=== PATIENT | female | born 1980 | race Hispanic/Latino ===

== ENCOUNTER 2017-08-19 09:00 | Inpatient (IN) | payer OTHER ==
[2017-08-09 12:03] VITALS: BMI 25.8
[2017-11-07] MEDS ORDERED: Propofol 10 mg/ml Inj (20 ML) ONE ×2 (07:40→08:36)
[2017-11-07] MEDS ORDERED: Midazolam 2 MG/2 ML VIAL ONE (07:40)
[2017-11-07] MEDS ORDERED: Rocuronium 10 mg/ml (5 ml) ONE (07:43)
[2017-11-07] MEDS ORDERED: ceFAZolin 1 gm in NS 2 GM/200 ML BAG IVPB ONE (08:06)
[2017-11-07] MEDS ORDERED: Bacitracin Ointment 30 GM TUBE ONE (08:06)
[2017-11-07] MEDS ORDERED: Vasopressin 20 Units/ml Inj ONE (08:07)
[2017-11-07] MEDS ORDERED: Neostigmine Methylsulfate 3mg/3ml Syringe IV ONE (09:48)
[2017-11-07] MEDS ORDERED: Morphine Monoject Barrel PCA 1mg/ml IV PRN ×2 (10:39→13:07)
[2017-11-07] MEDS ORDERED: Lactated Ringer's 1,000 ML IV SCH (10:45)
[2017-11-07 11:30] LABS: HEMOGLOBIN 12.4 g/dL (11.0-16.0); MEAN CELL VOLUME 95.2 fL (81.0-99.0); MEAN CORPUSCULAR HEMOGLOBIN 31.8 pg (27.0-31.0); MEAN CORPUSCULAR HGB CONC 33.5 g/dL (33.0-37.0); MEAN PLATELET VOLUME 8.8 fL (7.2-11.7); RBC 3.89 Mil/uL (3.80-5.20); RED CELL DISTRIBUTION WIDTH 13.2 % (11.5-14.5)
[2017-11-07 11:40] LABS: WHITE BLOOD COUNT 10.2 K/uL (4.8-10.8)
[2017-11-07 11:47] LABS: ALB/GLOB RATIO 1.1 (1.0-2.1); ALBUMIN 3.6 g/dL (3.5-5.0); ALT/SGPT 18 U/L (9-52); AST/SGOT 23 U/L (14-36); BLOOD UREA NITROGEN 12 mg/dL (7-17); CALCIUM 8.3 mg/dl (8.6-10.4); GFR AFRICAN-AMERICAN > 60; GFR NON-AFRICAN AMERICAN > 60
[2017-11-07] MEDS: HYDROmorphone 0.5 mg/0.5 ml ISec IVP PRN ×2 (11:55→12:54)
--- NOTE | 2017-11-07 12:20 | PCM.SURG1 ---
Surgeon's Initial Post Op Note - Surgeon's Notes Surgeon: Danita Desai MD [place] Selector: Froilan Garcia MD Type of Anesthesia: General Endo Pre-Operative Diagnosis: Abnormal uteirne bleeding, enodmetiral polyp, sympomatic fibroid uteurs, pelivc pain Operative Findings: 10 week size uteurs, enarlged 12cm+ subserosal enlarged myoma near fundus normal tubes and ovaires bilatearlly, cervical polyp uteurs souned to 10cmn with multped polypoid structures removed wqith myosure device. bilater ostia vislulzied. Dr Froilan Garcia was surgicla assistnat and present for entire case and essential in gaining entry, retractin, epxousre, removing myoma, obtainign hemostasis, closign defect and all laters. Post-Operative Diagnosis: same as above Operation Performed: Abdominal myomectomy, operative hystersocpy, endometiral and cervical plypecotmy Specimen/Specimens Removed: leiomyoms, cervical polyp, endometira lply, endocervical cerrettings, endometrial currettings Estimated Blood Loss: EBL {In ML}: 300 Blood Products Given: N/A Drains Used: No Drains Post-Op Condition: Good Date of Surgery/Procedure: 11/07/17 Time of Surgery/Procedure: 08:30
[2017-11-07] MEDS ORDERED: Lactated Ringer's 1,000 ML IV ONE (13:00)
[2017-11-07] MEDS ORDERED: DiphenhydrAMINE 50 mg/ml Inj IVP PRN (13:07)
[2017-11-07] MEDS ORDERED: Naloxone 0.4 mg/ml Inj (Adult) IVP PRN (13:07)
--- NOTE | 2017-11-08 06:50 | CP.PCM.PN ---
Subjective - Date & Time of Evaluation Date of Evaluation: 11/08/17 Time of Evaluation: 06:30 - Subjective Subjective: pt seen and examiend adn reprots pain is better controlled with iv medicatinpt not yet ambauting, tolerating clears, densi any fever chills, naue, vomitng, heavyvagiang bleedng, not passign flatus. Objective - Vital Signs/Intake and Output Vital Signs (last 24 hours): Temp Pulse Resp BP Pulse Ox 97.6 F 62 20 106/64 98 11/08/17 00:00 11/08/17 00:00 11/08/17 00:00 11/08/17 00:00 11/08/17 00:00 Intake and Output: 11/07/17 11/08/17 18:59 06:59 Intake Total 2630 Output Total 900 Balance 1730 - Medications Medications: Current Medications Diphenhydramine HCl (Benadryl) 25 mg IVP Q6 PRN PRN Reason: Itching / Pruritus Indomethacin (Indocin) 25 mg PO TID [facility] Last Admin: 11/07/17 22:09 Dose: 25 mg Ketorolac Tromethamine (Toradol) 30 mg IVP Q6 [facility] Last Admin: 11/08/17 06:19 Dose: 30 mg Naloxone HCl (Narcan) 0.1 mg IVP Q2M PRN PRN Reason: Excess sedation Ondansetron HCl (Zofran Inj) 4 mg IVP Q8H PRN PRN Reason: Nausea/Vomiting Oxycodone/Acetaminophen (Percocet 5/325 Mg Tab) 1 tab PO Q4 PRN PRN Reason: Pain, moderate (4-7) Stop: 11/10/17 10:45 Oxycodone/Acetaminophen (Percocet 5/325 Mg Tab) 2 tab PO Q4H PRN PRN Reason: Pain, severe (8-10) Stop: 11/10/17 10:45 - Labs Labs: 11/07/17 11:21 11/07/17 11:21 - Constitutional Appears: Well, Non-toxic - Head Exam Head Exam: ATRAUMATIC, NORMAL INSPECTION - Eye Exam Eye Exam: EOMI Pupil Exam: NORMAL ACCOMODATION - ENT Exam ENT Exam: Normal Exam - Neck Exam Neck Exam: Normal Inspection - Respiratory Exam Respiratory Exam: Clear to Ausculation Bilateral, NORMAL BREATHING PATTERN - Cardiovascular Exam Cardiovascular Exam: +S1, +S2 - GI/Abdominal Exam GI & Abdominal Exam: Soft, Tenderness, Normal Bowel Sounds Additional comments: TTPover incsion, no guaridn, no reboudm tendner, no giidty VE: no vaginal bleeding - Extremities Exam Extremities Exam: Normal Inspection Additional comments: negative stacey's sign - Neurological Exam Neurological Exam: Alert, Awake, Oriented x3 Assessment and Plan (1) S/P myomectomy Assessment & Plan: 1. Pain managnet: d/c denial management representative --> s/p IV Toradol--> [po percocet/motrin 2. Advance diet as tolerated 3. d/c cortez 4. encurage ambulatin out of bed 5. Incentive spirometer 6, Abdominal binder 7. AM labs 8. Cont ruotine post op manamgnet Status: Acute
[2017-11-08 08:04] LABS: BASO % 0.3 % (0.0-2.0); EOS # 0.1 K/uL (0.0-0.7); EOS % 0.5 % (0.0-4.0); HEMOGLOBIN 11.2 g/dL (11.0-16.0); LYMPH # 2.2 K/uL (1.0-4.3); LYMPH % 19.6 % (20.0-40.0); MEAN CELL VOLUME 93.5 fL (81.0-99.0); MEAN CORPUSCULAR HEMOGLOBIN 31.3 pg (27.0-31.0); MEAN CORPUSCULAR HGB CONC 33.4 g/dL (33.0-37.0); MEAN PLATELET VOLUME 9.2 fL (7.2-11.7); MONO # 0.9 K/uL (0.0-0.8); MONO % 8.6 % (0.0-10.0); NEUT # 7.8 K/uL (1.8-7.0); RBC 3.58 Mil/uL (3.80-5.20); RED CELL DISTRIBUTION WIDTH 12.7 % (11.5-14.5)
[2017-11-08 08:34] LABS: ALB/GLOB RATIO 1.1 (1.0-2.1); ALBUMIN 3.2 g/dL (3.5-5.0); ALT/SGPT 15 U/L (9-52); AST/SGOT 38 U/L (14-36); BLOOD UREA NITROGEN 8 mg/dL (7-17); CALCIUM 8.2 mg/dl (8.6-10.4); GFR AFRICAN-AMERICAN > 60; GFR NON-AFRICAN AMERICAN > 60
[2017-11-08] MEDS: Oxycodone/Acetaminophen 5/325 mg Tab PO PRN ×3 (09:04→20:05)
--- NOTE | 2017-11-08 11:01 | OP ---
PROCEDURE DATE: 11/07/2017 SURGEON: Danita Desai MD ARCHITECT MARINE: Froilan Garcia MD TYPE OF ANESTHESIA: General endotracheal. PREOPERATIVE DIAGNOSES: Abnormal uterine bleeding, endometrial polyps, symptomatic fibroid uterus, pelvic pain. POSTOPERATIVE DIAGNOSES: Abnormal uterine bleeding, endometrial polyps, symptomatic fibroid uterus, pelvic pain. OPERATIVE FINDINGS: A 10-week size uterus, enlarged 12 cm plus subserosal enlarged myoma on fundus, gross proximity to the left fallopian tube, normal ovaries bilaterally. Cervical polyp noted. Uterus sounded 10 cm with multiple polypoid structures removed with Myosure device. Bilateral ostia visualized. Dr. Froilan Garcia was instructor adjunct surgical technician, presents for the entire case and essential in gaining entry, retraction, exposure, holding the bladder blade, removing the myoma, obtaining hemostasis, and closing the defect, and obtaining hemostasis. PROCEDURES PERFORMED: Abdominal myomectomy, operative hysteroscopy, endometrial and cervical polypectomy. SPECIMENS REMOVED: Leiomyoma, endometrial polyp, cervical polyp, endocervical curetting, endometrial curetting. ESTIMATED BLOOD LOSS : 300 mL. BLOOD PRODUCTS: None. COMPLICATIONS: None. DESCRIPTION OF PROCEDURE: The patient was taken to the operating room where she was given general anesthesia. Once found to be adequate, she was placed on the operating table in dorsal supine position with legs supported using stirrups. The patient was then prepped and draped in usual sterile fashion. Time-out confirmed correct patient and correct procedure. Bimanual exam was performed with the above-mentioned findings. Butcher catheter was then inserted into the urethra to drain the bladder. Following this, a Ragsdale retractor was placed in the anterior and posterior fornix of the vagina. The cervix was adequately visualized and single-toothed tenaculum was placed in the anterior lip of the cervix. The cervical polypoid tissue noted. Endocervical curettings were obtained with a Kevorkian curette and sent to pathology on [facility]. The uterus was then carefully sounded. Following this, the cervix was sequentially dilated to allow for introduction of 5-mm hysteroscope under direct visualization using normal saline as distention media. The MyoSure device was then inserted under direct visualization removing the polypoid type tissues. The cervical polyp was then removed using cervical polypectomy forceps. A gentle curettage less than 360 degrees until a gritty texture was noted. Following this, the hysteroscope was then reinserted. There was good hemostasis noted. The single-tooth tenaculum was removed, following all other instruments, and there was good hemostasis noted. The patient was then repositioned in dorsal supine position. The surgeon then regloved. Attention was then turned towards the abdomen in which a low transverse incision was made with a scalpel and carried down to the underlying layer of the fascia with the Bovie. The fascia was incised in the midline and the incision was extended laterally with the Bovie. The inferior aspect of the fascial incision was grasped with Allis and Abraham clamps and underlying rectus muscle dissected off bluntly. Attention was then turned to the superior aspect of the incision in a similar fashion. It was grasped with Allis and Abraham clamps and the underlying rectus muscles were dissected off bluntly. The rectus muscle was then bluntly in the midline. The peritoneum was identified and entered into clear space . The incision was extended laterally and superiorly until there was good visualization of the bladder . There was a large myoma noted to be protruding with the cavity. The large leiomyoma was then delivered through the uterine incision, and it was a very very large myoma noted frontally to these much smaller uterus. The lower end of the [place] was then reinserted, and the leiomyoma was then retracted and exposed. A tourniquet was then applied to the base of the large leiomyoma and vasopressin was then inserted along the base of the myoma, and the Bovie electrocautery was then used to carefully remove the myoma. Following this, the myoma was dissected down to the level of the fundus, and there was good hemostasis noted. Tourniquet was removed, and the defect area was closed in 2 layers using 2-0 Vicryl and subserosal layer. There was good hemostasis noted. There was no other myomas appreciated. There was good hemostasis noted. The uterus was then returned to the abdomen and the myoma had been protruding through the cavity. The patient will be counseled that for future delivery, she should need a section. Following this, there was good hemostasis noted. The uterus was then returned to the abdomen. There was good hemostasis noted again. The peritoneum was reapproximated with 2-0 chromic in a running continuous fashion. The The rectus was reapproximated with 2-0 chromic in an interrupted manner. The fascia was reapproximated with 0 Vicryl in a running continuous fashion. Subcutaneous layer was closed with 2-0 plain in an interrupted manner and the skin was reapproximated and closed with 4-0 Monocryl in a running subcuticular fashion. At the end of the procedure, all needle, sponge, and instrument counts were noted as correct x2. The patient tolerated the procedure well and transferred to recovery room in stable condition. Danita Desai MD
[2017-11-08] MEDS: Simethicone 80 mg Chewtab PO SCH (22:22)
[2017-11-09] MEDS: Oxycodone/Acetaminophen 5/325 mg Tab PO PRN ×4 (05:38→23:44)
[2017-11-09] MEDS: Bacitracin Ointment 30 GM TUBE TOP SCH ×2 (09:42→17:29)
[2017-11-09] MEDS: Simethicone 80 mg Chewtab PO SCH ×4 (09:43→21:47)
[2017-11-10 07:54] VITALS: BP 110/74; PULSE 71; RESP 18; TEMP 97
[2017-11-10 08:38] VITALS: O2SAT 99
[2017-11-10] MEDS: Bacitracin Ointment 30 GM TUBE TOP SCH (09:43)
[2017-11-10] MEDS: Simethicone 80 mg Chewtab PO SCH (09:44)
[2017-11-10] MEDS ORDERED: Bisacodyl 5mg EC Tab PO ONE (10:25)
[2017-11-10] MEDS: Oxycodone/Acetaminophen 5/325 mg Tab PO PRN (10:34)
--- NOTE | 2017-11-10 15:55 | CP.PCM.PN ---
Subjective - Date & Time of Evaluation Date of Evaluation: 11/09/17 Time of Evaluation: 07:00 - Subjective Subjective: pt seen and emxaine reports pain over incison, pt mabuiatn, voidng, not passing flaut, toerlaign reuglar diet Objective - Vital Signs/Intake and Output Vital Signs (last 24 hours): Temp Pulse Resp BP Pulse Ox 97 F L 71 18 110/74 99 11/10/17 08:00 11/10/17 08:00 11/10/17 08:00 11/10/17 08:00 11/10/17 08:00 - Labs Labs: 11/08/17 07:56 11/08/17 07:56 - Head Exam Head Exam: ATRAUMATIC - Eye Exam Pupil Exam: PERRL - ENT Exam ENT Exam: Mucous Membranes Moist - Respiratory Exam Respiratory Exam: Clear to Ausculation Bilateral, NORMAL BREATHING PATTERN - Cardiovascular Exam Cardiovascular Exam: REGULAR RHYTHM, +S1, +S2 - GI/Abdominal Exam GI & Abdominal Exam: Soft, Tenderness, Normal Bowel Sounds Additional comments: no guarindg no bouren dntenderr, no rigidyt incson c/d/i no vaignal bleeidng ttp over incsoin - Exam External exam: NORMAL EXTERNAL EXAM Assessment and Plan (1) S/P myomectomy Assessment & Plan: 1. pain manamgnet 2. regular diet 3. bowel regime 4. am labs 5. abodmina binder, incentive psironete Status: Acute
--- NOTE | 2017-11-10 15:57 | CP.PCM.PN ---
Subjective - Date & Time of Evaluation Date of Evaluation: 11/10/17 Time of Evaluation: 08:00 - Subjective Subjective: pt seen and examiend reports donavan shea,ya mabitng, rolo fluats, toelraign diet, o fiver, chills, nuae, voitng Objective - Vital Signs/Intake and Output Vital Signs (last 24 hours): Temp Pulse Resp BP Pulse Ox 97 F L 71 18 110/74 99 11/10/17 08:00 11/10/17 08:00 11/10/17 08:00 11/10/17 08:00 11/10/17 08:00 - Labs Labs: 11/08/17 07:56 11/08/17 07:56 - Constitutional Appears: Well, Non-toxic - Eye Exam Eye Exam: EOMI Pupil Exam: PERRL - Respiratory Exam Respiratory Exam: Clear to Ausculation Bilateral, NORMAL BREATHING PATTERN - Cardiovascular Exam Cardiovascular Exam: REGULAR RHYTHM, +S1, +S2 - GI/Abdominal Exam GI & Abdominal Exam: Soft, Normal Bowel Sounds Additional comments: non tende,r no guraid,g no reboud, tendner, no rigidty incicon c/d/i healivn gwle n o vaigal bleeidng - Exam Exam: NORMAL INSPECTION External exam: NORMAL EXTERNAL EXAM Assessment and Plan (1) S/P myomectomy Assessment & Plan: 1. dc home 2. rto 1 week 3. precuaoitn givne Status: Acute
--- NOTE | 2017-11-10 15:58 | CP.PCM.DIS ---
Provider - Provider Date of Admission: 11/07/17 06:04 Attending physician: Danita Desai MD Time Spent in preparation of Discharge (in minutes): 30 Diagnosis - Discharge Diagnosis (1) S/P myomectomy Status: Acute Hospital Course - Lab Results Lab Results: Most Recent Lab Values WBC 11.0 K/uL (4.8-10.8) H 11/08/17 07:56 RBC 3.58 Mil/uL (3.80-5.20) L 11/08/17 07:56 Hgb 11.2 g/dL (11.0-16.0) 11/08/17 07:56 Hct 33.5 % (34.0-47.0) L 11/08/17 07:56 MCV 93.5 fL (81.0-99.0) 11/08/17 07:56 MCH 31.3 pg (27.0-31.0) H 11/08/17 07:56 MCHC 33.4 g/dL (33.0-37.0) 11/08/17 07:56 RDW 12.7 % (11.5-14.5) 11/08/17 07:56 Plt Count 213 K/uL (130-400) 11/08/17 07:56 MPV 9.2 fL (7.2-11.7) 11/08/17 07:56 Neut % (Auto) 71.0 % (50.0-75.0) 11/08/17 07:56 Lymph % (Auto) 19.6 % (20.0-40.0) L 11/08/17 07:56 Parmer % (Auto) 8.6 % (0.0-10.0) 11/08/17 07:56 Eos % (Auto) 0.5 % (0.0-4.0) 11/08/17 07:56 Baso % (Auto) 0.3 % (0.0-2.0) 11/08/17 07:56 Neut # (Auto) 7.8 K/uL (1.8-7.0) H 11/08/17 07:56 Lymph # (Auto) 2.2 K/uL (1.0-4.3) 11/08/17 07:56 Parmer # (Auto) 0.9 K/uL (0.0-0.8) H 11/08/17 07:56 Eos # (Auto) 0.1 K/uL (0.0-0.7) 11/08/17 07:56 Baso # (Auto) 0.0 K/uL (0.0-0.2) 11/08/17 07:56 Sodium 136 mmol/L (132-148) 11/08/17 07:56 Potassium 3.8 mmol/L (3.6-5.2) 11/08/17 07:56 Chloride 103 mmol/L (98-107) 11/08/17 07:56 Carbon Dioxide 23 mmol/L (22-30) 11/08/17 07:56 Anion Gap 13 (10-20) 11/08/17 07:56 BUN 8 mg/dL (7-17) 11/08/17 07:56 Creatinine 0.6 mg/dL (0.7-1.2) L 11/08/17 07:56 Est GFR ( Amer) > 60 11/08/17 07:56 Est GFR (Non-Af Amer) > 60 11/08/17 07:56 Random Glucose 109 mg/dL (65-105) H 11/08/17 07:56 Calcium 8.2 mg/dl (8.6-10.4) L 11/08/17 07:56 Total Bilirubin 0.9 mg/dL (0.2-1.3) 11/08/17 07:56 AST 38 U/L (14-36) H D 11/08/17 07:56 ALT 15 U/L (9-52) 11/08/17 07:56 Alkaline Phosphatase 34 U/L (38-126) L 11/08/17 07:56 Total Protein 6.1 g/dL (6.3-8.3) L 11/08/17 07:56 Albumin 3.2 g/dL (3.5-5.0) L 11/08/17 07:56 Globulin 2.9 gm/dL (2.2-3.9) 11/08/17 07:56 Albumin/Globulin Ratio 1.1 (1.0-2.1) 11/08/17 07:56 Blood Type A POSITIVE 11/07/17 07:10 Antibody Screen Negative 11/07/17 07:10 Discharge Exam - Head Exam Head Exam: ATRAUMATIC - Eye Exam Eye Exam: EOMI - Respiratory Exam Respiratory Exam: Clear to PA & Lateral, UNREMARKABLE - Cardiovascular Exam Cardiovascular Exam: REGULAR RHYTHM - GI/Abdominal Exam GI & Abdominal Exam: Unremarkable Discharge Plan - Discharge Medications Prescriptions: RX: oxyCODONE/Acetaminophen [Percocet 5/325 mg Tab] 1 ea PO Q6H PRN #15 tab PRN Reason: Pain, Moderate (4-7) - Follow Up Plan Condition: GOOD Disposition: HOME/ ROUTINE Instructions: Myomectomy, Open Surgery, Uterine Fibroids (DC), Hysteroscopy (DC ), Myomectomy (DC), Acute Abdominal Pain (DC), Acute Abdominal Pain (GEN) Additional Instructions: Light activity, no heavy lifting, drink plenty of fluids, take pain medication as prescribed by the physician keep post operative site clean and dry, follow-up with md. Referrals: Danita Desai MD [Staff Provider] -
== END 2017-11-10 12:15 | disposition home or self-care (01) | DRG 743 ==
LOC: EDSTATUS 10:00 → C.9S 11-07 06:04 → EEVIPCON 11-07 06:04 → C.4M 11-07 12:15 → MERGE 11-07 15:00
PROVIDERS: ADMIT Obstetrics & Gynecology; ATTEND Obstetrics & Gynecology
PROC: 0UB98ZZ Excision of Uterus, Via Natural or Artificial Opening Endoscopic (ICD-10-PCS; 2017-11-07)
PROC: 0UBC8ZZ Excision of Cervix, Via Natural or Artificial Opening Endoscopic (ICD-10-PCS; 2017-11-07)
PROC: 0UB90ZZ Excision of Uterus, Open Approach (ICD-10-PCS; principal; 2017-11-07 07:45)
DX: D25.2 Subserosal leiomyoma of uterus (principal); N84.0 Polyp of corpus uteri; N84.1 Polyp of cervix uteri; N93.9 Abnormal uterine and vaginal bleeding, unspecified

== ENCOUNTER 2018-12-07 21:07 | Emergency (ER) | payer OTHER ==
[2018-12-07 21:08] VITALS: BMI 25.8
[2018-12-07 21:34] VITALS: BP 133/91; PULSE 94; RESP 20; TEMP 98.5; O2SAT 100
--- NOTE | 2018-12-07 22:05 | C.PDOC ---
History Of Present Illness 38 y/o female, with no PMHx, comes in to ED for evaluation of head trauma. Patient reports she was at work about 1 hour before arrival, stood up, hit top of head on a shelf, and felt nauseous immediately afterwards. Denies LOC, vomiting, amnesia, confusion, vision change, dizziness, blood thinners, or present alcohol use. Time Seen by Provider: 12/07/18 21:42 Chief Complaint (Nursing): Medical Clearance History Per: Patient History/Exam Limitations: no limitations Onset/Duration Of Symptoms: Hrs Current Symptoms Are (Timing): Still Present Past Medical History Reviewed: Historical Data, Nursing Documentation, Vital Signs Vital Signs: Last Vital Signs Temp 98.5 F 12/07/18 21:25 Pulse 94 H 12/07/18 21:25 Resp 20 12/07/18 21:25 BP 133/91 H 12/07/18 21:25 Pulse Ox 100 12/07/18 21:25 Primary Care Provider: FAMILY PROVIDER,NO - Medical History PMH: Denies: Chronic Kidney Disease - [facility] Procedures EXCISION OF CERVIX, ENDO (11/07/17) EXCISION OF UTERUS, ENDO (11/07/17) EXCISION OF UTERUS, OPEN APPROACH (11/07/17) INJECT/INFUSE NEC (05/23/14) Family History: States: No Known Family Hx - Social History Hx Alcohol Use: Yes Hx Substance Use: No - Immunization History Hx Tetanus Toxoid Vaccination: No Hx Influenza Vaccination: No Hx Pneumococcal Vaccination: No Review Of Systems Except As Marked, All Systems Reviewed And Found Negative. Constitutional: Negative for: Fever, Chills Cardiovascular: Negative for: Chest Pain Respiratory: Negative for: Shortness of Breath Gastrointestinal: Positive for: Nausea. Negative for: Vomiting Musculoskeletal: Positive for: Other (Head pain). Negative for: Neck Pain Neurological: Negative for: Confusion, Dizziness, Other (LOC) Physical Exam - Physical Exam Appears: Non-toxic, No Acute Distress Skin: Warm, Dry Head: Atraumatic, Normacephalic, Other (no bleeding or contusion on scalp, mild tenderness to palpation over posterior scalip at midline) Eye(s): bilateral: Normal Inspection, PERRL, EOMI Oral Mucosa: Moist Neck: Normal ROM, Supple Neurological/Psych: Oriented x3 (person, place, time, event), Normal Speech, Normal Cranial Nerves (II-VII grossly intact), Normal Motor (5/5 strength in all extremities), Normal Sensation (in all extremities) Gait: Steady ED Course And Treatment O2 Sat by Pulse Oximetry: 100 (RA) Pulse Ox Interpretation: Normal Progress Note: Imagining not warranted at this time. At present, patient denies nausea, is neurologically intact, and feels comfortable going home. Observed in ED for one hour and discharged home Disposition Counseled Patient/Family Regarding: Diagnosis, Need For Followup - Disposition Disposition: HOME/ ROUTINE Disposition Time: 22:19 Condition: GOOD Instructions: Minor Head Injury (DC) Forms: [employer] (Kazakh) - Clinical Impression Clinical Impression: Minor head injury without loss of consciousness - PA / SHIP'S MASTER / Resident Statement MD/DO has reviewed & agrees with the documentation as recorded. - Scribe Statement The provider has reviewed the documentation as recorded by the Scribe Liat Jarrell All medical record entries made by the Scribe were at my direction and personally dictated by me. I have reviewed the chart and agree that the record accurately reflects my personal performance of the history, physical exam, medical decision making, and the department course for this patient. I have also personally directed, reviewed, and agree with the discharge instructions and disposition.
== END 2018-12-07 22:24 | disposition home or self-care (01) ==
LOC: C.ER 21:07
DX: S09.90XA Unspecified injury of head, initial encounter (principal); W22.09XA Striking against other stationary object, initial encounter; Y92.69 Other specified industrial and construction area as the place of occurrence of the external cause; Y99.0 Civilian activity done for income or pay